=== PATIENT | male | born 1955 | race Caucasian/White ===

== ENCOUNTER 2019-06-17 09:07 | Day surgery (SDC) | payer MEDICAID ==
[~2019-06-17] VITALS: Ht 167.6 cm; Wt 69.9 kg
[2019-06-17] MEDS ORDERED: LACTATED RINGERS 1,000 ML IV SCH (10:50)
[2019-06-17] MEDS ORDERED: ATOR10TA PO (11:27)
[2019-06-17] MEDS ORDERED: MIDAZOLAM HCL 2 MG/2 ML VIAL ONE (13:59)
[2019-06-17] MEDS ORDERED: FENTANYL CITRATE/PF 50MCG/ML 2ML VIAL ONE (13:59)
[2019-06-17] MEDS ORDERED: LIDOCAINE HCL 1% 20ML VIAL (Pyxis) INJ ONE (14:16)
[2019-06-17] MEDS ORDERED: PROPOFOL 200MG/20ML VIAL IV ONE (14:16)
[2019-06-17] MEDS ORDERED: LIDOCAINE HCL 2%/EPINEPHRINE 1:100,000 20 ML VIAL INFIL ONE (14:55)
[2019-06-17] MEDS ORDERED: NEO/POLYMYX B SULF/DEXAMETH OPHTH OINT 3.5GM ONE (14:55)
[2019-06-17] MEDS ORDERED: LIDOCAINE HCL/PF 2% 20 MG/ML 10ML VIAL ONE (14:55)
[2019-06-17] MEDS ORDERED: TETRACAINE 0.5% OPHTH DROPS 4ML ONE (14:55)
[2019-06-17] MEDS ORDERED: BUPIVACAINE HCL/PF 0.75% (7.5MG/ML) 10ML ONE (14:55)
[2019-06-17] MEDS ORDERED: PREDNISOLONE ACETATE 1% OPHTH DROPS 1ML ONE (14:55)
[2019-06-17] MEDS ORDERED: CIPROFLOXACIN 0.3% OPHTH SOLN 2.5ML ONE (14:55)
[2019-06-17] MEDS ORDERED: BALANCED SALT IRRIG SOLN 15ML ONE (14:55)
== END 2019-06-17 16:25 | disposition home or self-care (01) ==
LOC: OR 09:07
PROVIDERS: ATTEND Ophthalmology
DX: H11.001 Unspecified pterygium of right eye (principal); E11.9 Type 2 diabetes mellitus without complications; K21.9 Gastro-esophageal reflux disease without esophagitis; E78.5 Hyperlipidemia, unspecified; Z98.890 Other specified postprocedural states; Z79.899 Other long term (current) drug therapy
CPT/HCPCS: 65426; 82962; J2250; J2704; J3010; J3490